=== PATIENT | female | born 1965 | race Caucasian/White ===

== ENCOUNTER 2016-05-01 22:16 | Emergency (ER) | payer OTHER ==
[~2016-05-01 22:16] MED LIST: ACULAR10 ML OP; AMOXICILLIN PO; AMOXICILLIN500 M1 PO; ASPIRIN BUFFER325 M2 PO; ATARAX PO; AURALGAN EAR DROPS; BACTRIM DS TABL1 TA1 PO; BENZONATATE PO; BP PILL; CELEXA20 MG PO; CHOLESTEROL PILL; CILOXAN 0.3% O2.5 ML OD; CIPRO PO; CIPROFLOXACIN; CLEOCIN PO; CLEOCIN150 MG PO; CORTISPORIN OTIC; CORTISPORIN-TC10 ML OT; CRESTOR PO; DARVOCET-N 1001 TA2 PO; DARVOCET-N 1001 TAB PO; DESYREL50 M1 PO; DEXAMETHASONE; DIFLUCAN PO; DOXYCYCLINE HY100 M1 PO; EAR DROPS; FLAGYL PO; FLEXERIL10 MG PO; GLUCOPHAGE XR500 MG PO; GLUCOPHAGE500 MG PO; GRALISE1 EACH; KEFLEX PO; KEFLEX500 M1 PO; KEFLEX500 MG PO; LANTUS100 UNITS/ SUBQ; LISINOPRIL PO; LISINOPRIL20 MG PO; LORTAB 5/500 TA1 TA1 PO; LORTAB 7.51 TAB PO; METFORMIN PO; NORCO 5/325 TAB1 TAB PO; ORUDIS75 M1 DOB; ORUDIS75 M1 PO; PERCOCET5/325 PO; PLAVIX PO; PLAVIX300 MG; POLYTRIM O10 ML OPTH OU; ST JOSEPH ASPIR81 MG; TOPROL XL 50 MG50 MG PO; TOPROL XL100 MG; TYLENOL #3 PO; ULTRACET TABLET1 TAB PO; ULTRAM PO; VIBRAMYCIN100 M1 PO; VICODIN 5/1 TAB 5/50 PO; VICODIN 5/500 T1 TAB PO; VICODIN PO; VOLTAREN50 MG PO; VOLTAREN75 MG PO; [UNRECOGNIZED DRUG - OTHER] TOP; [UNRECOGNIZED DRUG - REMARK]; [UNRECOGNIZED DRUG - REMARK]
== END 2016-05-01 22:47 | disposition home or self-care (01) ==
LOC: SED 22:16
DX: M79.604 Pain in right leg (principal); G89.29 Other chronic pain; E11.9 Type 2 diabetes mellitus without complications; I10 Essential (primary) hypertension; F17.200 Nicotine dependence, unspecified, uncomplicated
CPT/HCPCS: 99282